=== PATIENT | female | born 1995 | race African-American/Black ===

== ENCOUNTER 2019-10-23 18:58 | Observation (INO) | payer MEDICAID ==
[~2019-10-23] VITALS: Ht 152.4 cm; Wt 118.8 kg
[~2019-10-23 18:58] MED LIST: PREN1TAB49 PO
== END 2019-10-24 00:40 | disposition home or self-care (01) ==
LOC: SPU 18:58
PROVIDERS: ADMIT Specialist; ATTEND Specialist
DX: O62.9 Abnormality of forces of labor, unspecified (principal); Z3A.37 37 weeks gestation of pregnancy
CPT/HCPCS: 59025; 81002; G0378 ×2

== ENCOUNTER 2019-10-26 06:25 | Observation (INO) | payer MEDICAID ==
[~2019-10-26] VITALS: Ht 152.4 cm; Wt 118.8 kg
== END 2019-10-26 09:00 | disposition home or self-care (01) ==
LOC: SPU 06:25
PROVIDERS: ADMIT Specialist; ATTEND Specialist
DX: O62.9 Abnormality of forces of labor, unspecified (principal); O42.92 Full-term premature rupture of membranes, unspecified as to length of time between rupture and onset of labor; Z3A.38 38 weeks gestation of pregnancy
CPT/HCPCS: G0378

== ENCOUNTER 2019-11-01 05:26 | Observation (INO) | payer MEDICAID | END 2019-11-01 11:34 | disposition home or self-care (01) | LOC: SPU 05:26 | PROVIDERS: ADMIT Obstetrics & Gynecology; ATTEND Obstetrics & Gynecology | DX: O36.8130 Decreased fetal movements, third trimester, not applicable or unspecified (principal); Z3A.38 38 weeks gestation of pregnancy | CPT/HCPCS: G0378 ==

== ENCOUNTER 2019-11-07 07:05 | Inpatient (IN) | payer MEDICAID ==
[~2019-11-07] VITALS: Ht 152.4 cm; Wt 118.8 kg
[2019-11-07] MEDS ORDERED: NALBUPHINE HCL 10 MG/ML AMP IVP PRN (07:15)
[2019-11-07] MEDS ORDERED: LR 1,000 ML IV SCH (07:15)
[2019-11-07] MEDS ORDERED: LR 1,000 ML IV ONE (07:15)
[2019-11-07] MEDS ORDERED: OXYTOCIN/0.9 % SODIUM CHLORIDE 1,000 ML IV SCH (07:15)
[2019-11-07] MEDS ORDERED: AMPICILLIN SODIUM 2 GM in NS 100 ML IV ONE (08:00)
[2019-11-07 08:08] LABS: BASOPHILS % (AUTO) 0.3 % (0.0-2.0); EOSINOPHILS % (AUTO) 0.4 % (0.0-4.0); HEMATOCRIT 37.5 % (36-48); HEMOGLOBIN 12.3 g/dL (12.0-16.0); LYMPHOCYTES # (AUTO) 1.8 K/uL (1.0-5.5); MEAN CORPUSCULAR HEMOGLOBIN 27 pg (27-31); MEAN CORPUSCULAR HGB CONC 33 % (32-36); MEAN CORPUSCULAR VOLUME 83 fL (79.0-98.0); MONOCYTES # (AUTO) 0.6 K/uL (0.0-1.0); MONOCYTES % (AUTO) 8.9 % (1.7-9.3); NEUTROPHILS # (AUTO) 4.3 K/uL (1.8-7.7); NEUTROPHILS % (AUTO) 64.4 % (40.0-70.0); PLATELET COUNT (AUTO) 284 K/uL (130-430); RED BLOOD CELL COUNT(AUTO) 4.52 MIL/uL (4.2-6.2); RED CELL DISTRIBUTION WIDTH 16.1 % (9.0-15.0); WHITE BLOOD COUNT (AUTO) 6.8 K/uL (4.8-10.8)
[2019-11-07] MEDS ORDERED: AMPICILLIN SODIUM 2 GM VIAL ONE (08:25)
[2019-11-07 09:25] VITALS: BP_SYST 117
[2019-11-07] MEDS: AMPICILLIN SODIUM 1 GM in NS 50 ML IV SCH ×2 (12:30→17:00)
[2019-11-07] MEDS ORDERED: OXYTOCIN 10 UNIT/ML VIAL ONE (21:56)
[2019-11-07] MEDS ORDERED: METHYLERGONOVINE MALEATE 0.2 MG/ML AMP ONE (22:01)
[2019-11-07] MEDS ORDERED: OXYCODONE/ACETAMINOPHEN 5-325 TABLET ONE (22:14)
[2019-11-08] MEDS ORDERED: LANOLIN 7 GM OINT. TP PRN (01:15)
[2019-11-08] MEDS ORDERED: WITCH HAZEL LEAF 1 MED.PAD MED.PAD TP PRN (01:15)
[2019-11-08] MEDS ORDERED: SENNOSIDES/DOCUSATE SODIUM 1 TAB TABLET(SENOKOT-S) PO PRN (01:15)
[2019-11-08] MEDS ORDERED: OXYCODONE/ACETAMINOPHEN 5-325 TABLET PO PRN ×2 (01:15)
[2019-11-08] MEDS ORDERED: METHYLERGONOVINE MALEATE 0.2 MG TABLET PO PRN (01:15)
[2019-11-08] MEDS ORDERED: DERMOPLAST SPRAY TP PRN (01:15)
[2019-11-08] MEDS ORDERED: ANUSOL 1 EA SUPP.RECT (PREPARATION H) RC PRN (01:15)
[2019-11-08] MEDS ORDERED: DOCUSATE SODIUM 100 MG CAPSULE PO PRN (01:15)
[2019-11-08] MEDS: IBUPROFEN 600 MG TABLET PO SCH ×3 (08:22→20:02)
--- NOTE | 2019-11-08 16:22 | NUR ---
Dietitian Recommendations * Recommend continuing regular diet LP, RD Please refer to Nutrition Assessment for details. Addendum: 11/08/19 at [address] Amended: Links added.
[2019-11-09] MEDS: IBUPROFEN 600 MG TABLET PO SCH ×2 (01:03→06:00)
[2019-11-09 06:33] LABS: BASOPHILS % (AUTO) 0.6 % (0.0-2.0); EOSINOPHILS # (AUTO) 0.1 K/uL (0.0-0.4); EOSINOPHILS % (AUTO) 1.2 % (0.0-4.0); HEMATOCRIT 31.6 % (36-48); HEMOGLOBIN 10.5 g/dL (12.0-16.0); LYMPHOCYTES # (AUTO) 3.2 K/uL (1.0-5.5); LYMPHOCYTES % (AUTO) 40.8 % (20.5-51.5); MEAN CORPUSCULAR HEMOGLOBIN 28 pg (27-31); MEAN CORPUSCULAR HGB CONC 33 % (32-36); MEAN CORPUSCULAR VOLUME 83 fL (79.0-98.0); MONOCYTES # (AUTO) 0.7 K/uL (0.0-1.0); NEUTROPHILS # (AUTO) 3.8 K/uL (1.8-7.7); NEUTROPHILS % (AUTO) 48.4 % (40.0-70.0); PLATELET COUNT (AUTO) 274 K/uL (130-430); RED BLOOD CELL COUNT(AUTO) 3.79 MIL/uL (4.2-6.2); RED CELL DISTRIBUTION WIDTH 15.5 % (9.0-15.0); WHITE BLOOD COUNT (AUTO) 7.9 K/uL (4.8-10.8)
== END 2019-11-09 12:12 | disposition home or self-care (01) | DRG 560 ==
LOC: SPU 07:05
PROVIDERS: ADMIT Obstetrics & Gynecology; ATTEND Obstetrics & Gynecology
PROC: 10E0XZZ Delivery of Products of Conception, External Approach (ICD-10-PCS; principal; 2019-11-07)
DX: O80 Encounter for full-term uncomplicated delivery (principal); R71.0 Precipitous drop in hematocrit; Z37.0 Single live birth; Z3A.40 40 weeks gestation of pregnancy
CPT/HCPCS: 36415; 81002-TC; 85025; 86592; 86886; 86900; 86901; J0290; J2210; J2590

== ENCOUNTER 2020-11-28 14:01 | Emergency (ER) | payer MEDICAID ==
[~2020-11-28] VITALS: Ht 152.4 cm; Wt 104.3 kg
[2020-11-28 14:08] VITALS: BP_SYST 109
--- NOTE | 2020-11-28 14:08 | NUR ---
Patient to ER bed Tent2 to gown for evaluation. Side rails up.
--- NOTE | 2020-11-28 14:09 | NUR ---
Pt brought by self, A&Ox4, pt presents to ER with L jaw pain / swelling starting one hour ago, pt afebrile, states recent toothache, skin pink and warm, cap refill <3.
--- NOTE | 2020-11-28 14:10 | NUR ---
Dr Dos Santos evaluating patient in the tent
[2020-11-28 14:12] VITALS: BP_SYST 109
--- NOTE | 2020-11-28 15:05 | NUR ---
Patient given written and verbal discharge instructions and verbalizes understanding. ER MD discussed with patient the results and treatment provided. Patient in stable condition. ID arm band removed. Rx of Keflex and Naproxen given. Patient educated on pain management and to follow up with PMD. Pain Scale 2/10 . Opportunity for questions provided and answered. Medication side effect fact sheet provided.
== END 2020-11-28 15:05 | disposition home or self-care (01) ==
LOC: SED 14:01
DX: K11.20 Sialoadenitis, unspecified (principal)
CPT/HCPCS: 99283

== ENCOUNTER 2020-12-24 12:28 | Emergency (ER) | payer MEDICAID, SELFPAY ==
[~2020-12-24] VITALS: Ht 152.4 cm; Wt 104.3 kg
[2020-12-24 12:40] VITALS: BP_SYST 105
[2020-12-24 13:06] LABS: BILIRUBIN,URINE NEGATIVE (NEGATIVE); BLOOD, URINE 2+ (NEGATIVE); COLOR,URINE YELLOW (YELLOW); GLUCOSE,URINE NEGATIVE (NEGATIVE); KETONES,URINE NEGATIVE (NEGATIVE); LEUKOCYTE ESTERASE ,URINE NEGATIVE (NEGATIVE); NITRITE, URINE NEGATIVE (NEGATIVE); PROTEIN URINE NEGATIVE (NEGATIVE); UROBILINOGEN,URINE 0.2 (0.2-1.0)
[2020-12-24 13:08] LABS: CLARITY/URINE SLIGHTLY HAZY (CLEAR)
[2020-12-24 13:10] LABS: HCG,QUAL RESULT NEGATIVE (NEGATIVE)
[2020-12-24 13:26] LABS: BACTERIA,URINE FEW /HPF (None Seen); MUCUS,URINE 1+ /LPF (None Seen); WBC,URINE 0-3 /HPF (0-3)
[2020-12-24 13:36] LABS: BASOPHILS % (AUTO) 0.4 % (0.0-2.0); EOSINOPHILS # (AUTO) 0.2 K/uL (0.0-0.4); EOSINOPHILS % (AUTO) 3.3 % (0.0-4.0); HEMATOCRIT 39.4 % (36-48); HEMOGLOBIN 13.1 g/dL (12.0-16.0); LYMPHOCYTES % (AUTO) 41.3 % (20.5-51.5); MEAN CORPUSCULAR HEMOGLOBIN 27 pg (27-31); MEAN CORPUSCULAR HGB CONC 33 % (32-36); MEAN CORPUSCULAR VOLUME 83 fL (79.0-98.0); MONOCYTES # (AUTO) 0.8 K/uL (0.0-1.0); MONOCYTES % (AUTO) 10.5 % (1.7-9.3); NEUTROPHILS # (AUTO) 3.2 K/uL (1.8-7.7); NEUTROPHILS % (AUTO) 44.5 % (40.0-70.0); PLATELET COUNT (AUTO) 306 K/uL (130-430); RED BLOOD CELL COUNT(AUTO) 4.76 MIL/uL (4.2-6.2); RED CELL DISTRIBUTION WIDTH 14.5 % (9.0-15.0); WHITE BLOOD COUNT (AUTO) 7.2 K/uL (4.8-10.8)
[2020-12-24 14:53] VITALS: BP_SYST 114
== END 2020-12-24 14:53 | disposition home or self-care (01) ==
LOC: SED 12:28
DX: B34.9 Viral infection, unspecified (principal); Z20.822 Contact with and (suspected) exposure to COVID-19
CPT/HCPCS: 36415; 81000-TC; 81025; 84703; 85025; 99283

== ENCOUNTER 2021-05-12 13:48 | Emergency (ER) | payer MEDICAID, SELFPAY ==
[~2021-05-12] VITALS: Ht 152.4 cm; Wt 110.2 kg
[2021-05-12 14:02] VITALS: BP_SYST 128
--- NOTE | 2021-05-12 14:05 | NUR ---
Patient to ER bed 4 to gown for evaluation. Side rails up.
--- NOTE | 2021-05-12 14:15 | NUR ---
ER at bedside examining patient.
[2021-05-12] MEDS ORDERED: MECLIZINE HCL 25 MG TABLET (ANITVERT) PO ONE (14:30)
[2021-05-12] MEDS ORDERED: METOCLOPRAMIDE HCL 10 MG/2 ML VIAL IVP ONE (14:30)
--- NOTE | 2021-05-12 14:50 | NUR ---
# 20 gauge angiocath placed to left AC. Use of asceptic technique. Opsite placed over site. Blood return noted. Blood for lab drawn from site. Flushed with 10 cc of normal saline. No evidence of infiltration noted. Patient tolerated well.
--- NOTE | 2021-05-12 15:01 | NUR ---
Patient transported to radiology via wheelchair, accompanied by staff.
[2021-05-12 15:07] LABS: BASOPHILS % (AUTO) 0.2 % (0.0-2.0); EOSINOPHILS % (AUTO) 0.2 % (0.0-4.0); HEMOGLOBIN 12.8 g/dL (12.0-16.0); LYMPHOCYTES # (AUTO) 1.5 K/uL (1.0-5.5); LYMPHOCYTES % (AUTO) 12.4 % (20.5-51.5); MEAN CORPUSCULAR HEMOGLOBIN 27 pg (27-31); MEAN CORPUSCULAR HGB CONC 33 % (32-36); MEAN CORPUSCULAR VOLUME 83 fL (79.0-98.0); MONOCYTES # (AUTO) 0.6 K/uL (0.0-1.0); MONOCYTES % (AUTO) 5.4 % (1.7-9.3); NEUTROPHILS # (AUTO) 9.6 K/uL (1.8-7.7); NEUTROPHILS % (AUTO) 81.8 % (40.0-70.0); PLATELET COUNT (AUTO) 348 K/uL (130-430); RED BLOOD CELL COUNT(AUTO) 4.72 MIL/uL (4.2-6.2); RED CELL DISTRIBUTION WIDTH 14.9 % (9.0-15.0); WHITE BLOOD COUNT (AUTO) 11.8 K/uL (4.8-10.8)
[2021-05-12 15:32] LABS: CALCIUM 9.3 mg/dL (8.4-11.0); CREATININE 0.76 mg/dL (0.55-1.30); POTASSIUM 3.8 mmol/L (3.5-5.1)
[2021-05-12 15:36] LABS: PROTHROMBIN TIME 10.4 SECS (9.5-12.5)
[2021-05-12 15:37] LABS: ALBUMIN 3.6 g/dL (3.4-4.8); TOTAL BILIRUBIN 0.1 mg/dL (0.0-1.0)
[2021-05-12] MEDS ORDERED: MECL-108 PO (16:20)
--- NOTE | 2021-05-12 16:30 | NUR ---
Patient given written and verbal discharge instructions and verbalizes understanding. Dr. Rust discussed with patient the results and treatment provided. Patient in stable condition. ID arm band removed. IV catheter removed intact and dressing applied, no active bleeding. Rx of Meclizine given. Patient educated on pain management and to follow up with PMD. Pain Scale 0. Opportunity for questions provided and answered. Medication side effect fact sheet provided.
[2021-05-12 16:43] VITALS: BP_SYST 101
== END 2021-05-12 16:30 | disposition home or self-care (01) ==
LOC: SED 13:48
DX: R42 Dizziness and giddiness (principal); Z79.899 Other long term (current) drug therapy
CPT/HCPCS: 36415; 70450; 71045; 76376; 80053; 81025; 84484; 85025; 85610; 85730; 93005; 96374; 99285; J2765; J8597

== ENCOUNTER 2021-10-09 21:26 | Emergency (ER) | payer MEDICAID ==
[~2021-10-09] VITALS: Ht 152.4 cm; Wt 113.4 kg
[~2021-10-09 21:26] MED LIST changes: +MECL-108 PO
[2021-10-09 21:34] VITALS: BP_SYST 131
--- NOTE | 2021-10-09 21:46 | NUR ---
Patient triaged and placed in waiting room. VSS and patient appears in no acute distress at this time.awaiting available bed, and MD notified of need for MSE.
--- NOTE | 2021-10-09 21:47 | NUR ---
COVID SWAB COLLECTED AND SENT TO LAB.
--- NOTE | 2021-10-09 22:20 | NUR ---
Patient to ER bed 6 to gown for evaluation. Side rails up. Report given to SARMAD BUNCH.
--- NOTE | 2021-10-09 22:30 | NUR ---
Pt report received. Pt states that her right ear became muffled this am around 1100, then she felt dizzy throught the day. 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 NAD noted at this time.
--- NOTE | 2021-10-09 22:30 | NUR ---
ER at bedside examining patient.
[2021-10-09] MEDS ORDERED: LORATADINE 10 MG TABLET PO ONE (23:30)
[2021-10-10 00:07] LABS: BASOPHILS % (AUTO) 0.3 % (0.0-2.0); EOSINOPHILS # (AUTO) 0.1 K/uL (0.0-0.4); EOSINOPHILS % (AUTO) 1.1 % (0.0-4.0); HEMATOCRIT 35.5 % (36-48); HEMOGLOBIN 11.9 g/dL (12.0-16.0); LYMPHOCYTES # (AUTO) 2.8 K/uL (1.0-5.5); LYMPHOCYTES % (AUTO) 28.1 % (20.5-51.5); MEAN CORPUSCULAR HEMOGLOBIN 27 pg (27-31); MEAN CORPUSCULAR HGB CONC 33 % (32-36); MEAN CORPUSCULAR VOLUME 80 fL (79.0-98.0); MONOCYTES # (AUTO) 0.8 K/uL (0.0-1.0); MONOCYTES % (AUTO) 7.8 % (1.7-9.3); NEUTROPHILS # (AUTO) 6.3 K/uL (1.8-7.7); NEUTROPHILS % (AUTO) 62.7 % (40.0-70.0); PLATELET COUNT (AUTO) 344 K/uL (130-430); RED BLOOD CELL COUNT(AUTO) 4.42 MIL/uL (4.2-6.2); RED CELL DISTRIBUTION WIDTH 14.8 % (9.0-15.0)
[2021-10-10 00:20] LABS: CALCIUM 8.9 mg/dL (8.4-11.0); CREATININE 0.67 mg/dL (0.55-1.30); POTASSIUM 3.9 mmol/L (3.5-5.1)
[2021-10-10 00:22] LABS: ERYTHROCYTE SEDIMENTATION RATE 15 MM/HR (0-20)
[2021-10-10 00:26] LABS: ALBUMIN 3.3 g/dL (3.4-4.8); TOTAL BILIRUBIN 0.2 mg/dL (0.0-1.0)
--- NOTE | 2021-10-10 00:27 | NUR ---
Dr. Mcgrath at bedside discussing POC with pt.
[2021-10-10] MEDS ORDERED: LORA10TA7 PO (00:35)
[2021-10-10] MEDS ORDERED: OXYM15MI9 NS (00:35)
[2021-10-10 00:40] VITALS: BP_SYST 134
--- NOTE | 2021-10-10 00:40 | NUR ---
Patient given written and verbal discharge instructions and verbalizes understanding. ER MD discussed with patient the results and treatment provided. Patient in stable condition. ID arm band removed. Rx of Claritin and Afrin sent electronically to pt's preferred pharmacy. Patient educated on pain management and to follow up with PMD. Pain Scale 0/10. Opportunity for questions provided and answered. Medication side effect fact sheet provided.
== END 2021-10-10 00:40 | disposition home or self-care (01) ==
LOC: SED 21:26
DX: H81.02 Meniere's disease, left ear (principal); Z79.899 Other long term (current) drug therapy; Z20.822 Contact with and (suspected) exposure to COVID-19
CPT/HCPCS: 36415; 80053; 85025; 85651-TC; 99283

== ENCOUNTER 2021-12-24 21:52 | Emergency (ER) | payer MEDICAID ==
[~2021-12-24] VITALS: Ht 152.4 cm; Wt 117.9 kg
[~2021-12-24 21:52] MED LIST changes: +LORA10TA7 PO; +OXYM15MI9 NS
[2021-12-24 22:08] VITALS: BP_SYST 118
[2021-12-24] MEDS ORDERED: ONDANSETRON HCL 4 MG/2 ML VIAL IVP ONE (23:15)
[2021-12-24] MEDS ORDERED: ACETAMINOPHEN 500 MG TABLET PO ONE (23:15)
[2021-12-24] MEDS ORDERED: NACL 0.9% 1,000 ML IV ONE (23:15)
[2021-12-24 23:28] LABS: BASOPHILS # (AUTO) 0.1 K/uL (0.0-0.2); BASOPHILS % (AUTO) 0.6 % (0.0-2.0); EOSINOPHILS # (AUTO) 0.1 K/uL (0.0-0.4); EOSINOPHILS % (AUTO) 1.1 % (0.0-4.0); HEMATOCRIT 37.6 % (36-48); HEMOGLOBIN 12.4 g/dL (12.0-16.0); LYMPHOCYTES # (AUTO) 2.6 K/uL (1.0-5.5); LYMPHOCYTES % (AUTO) 29.6 % (20.5-51.5); MEAN CORPUSCULAR HEMOGLOBIN 27 pg (27-31); MEAN CORPUSCULAR HGB CONC 33 % (32-36); MEAN CORPUSCULAR VOLUME 82 fL (79.0-98.0); MONOCYTES # (AUTO) 0.6 K/uL (0.0-1.0); MONOCYTES % (AUTO) 6.4 % (1.7-9.3); NEUTROPHILS # (AUTO) 5.4 K/uL (1.8-7.7); NEUTROPHILS % (AUTO) 62.3 % (40.0-70.0); PLATELET COUNT (AUTO) 352 K/uL (130-430); RED BLOOD CELL COUNT(AUTO) 4.59 MIL/uL (4.2-6.2); RED CELL DISTRIBUTION WIDTH 15.9 % (9.0-15.0); WHITE BLOOD COUNT (AUTO) 8.7 K/uL (4.8-10.8)
[2021-12-24 23:54] LABS: CALCIUM 8.9 mg/dL (8.4-11.0); CREATININE 0.54 mg/dL (0.55-1.30); POTASSIUM 3.8 mmol/L (3.5-5.1)
[2021-12-25 00:21] LABS: ALBUMIN 2.7 g/dL (3.4-4.8)
[2021-12-25 00:51] LABS: TOTAL BILIRUBIN 0.3 mg/dL (0.0-1.0)
[2021-12-25 01:17] LABS: BILIRUBIN,URINE NEGATIVE (NEGATIVE); BLOOD, URINE NEGATIVE (NEGATIVE); CLARITY/URINE CLEAR (CLEAR); COLOR,URINE YELLOW (YELLOW); GLUCOSE,URINE NEGATIVE (NEGATIVE); KETONES,URINE NEGATIVE (NEGATIVE); LEUKOCYTE ESTERASE ,URINE NEGATIVE (NEGATIVE); NITRITE, URINE NEGATIVE (NEGATIVE); PROTEIN URINE NEGATIVE (NEGATIVE); UROBILINOGEN,URINE 0.2 (0.2-1.0)
[2021-12-25 01:58] VITALS: BP_SYST 118
== END 2021-12-25 01:56 | disposition home or self-care (01) ==
LOC: SED 21:52
DX: O26.891 Other specified pregnancy related conditions, first trimester (principal); R10.9 Unspecified abdominal pain; Z3A.13 13 weeks gestation of pregnancy; Z79.899 Other long term (current) drug therapy
CPT/HCPCS: 36415; 76805; 80053; 81003; 81025; 84702; 85025; 96361; 96374; 99284; J2405; J7030

== ENCOUNTER 2021-12-28 15:41 | Emergency (ER) | payer MEDICAID ==
[~2021-12-28] VITALS: Ht 152.4 cm; Wt 120.2 kg
[2021-12-28 16:12] VITALS: BP_SYST 126
--- NOTE | 2021-12-28 16:30 | NUR ---
Patient to ER bed T1 to gown for evaluation. Side rails up.
[2021-12-28] MEDS ORDERED: ONDA-8 TL (16:35)
--- NOTE | 2021-12-28 16:35 | NUR ---
ER at bedside examining patient.
--- NOTE | 2021-12-28 16:40 | NUR ---
PT PRSENTS TO ED C/I COVID SYMPTOMS RECENT DX: COVID IN OCTOBER.
[2021-12-28 17:00] VITALS: BP_SYST 126
--- NOTE | 2021-12-28 17:00 | NUR ---
Patient given written and verbal discharge instructions and verbalizes understanding. ER MD discussed with patient the results and treatment provided. Patient in stable condition. ID arm band removed. Rx of ZOFRAN given. Patient educated on pain management and to follow up with PMD. Pain Scale 0. Opportunity for questions provided and answered. Medication side effect fact sheet provided.
== END 2021-12-28 17:00 | disposition home or self-care (01) ==
LOC: SED 15:41
DX: B34.9 Viral infection, unspecified (principal); R11.0 Nausea; Z79.899 Other long term (current) drug therapy
CPT/HCPCS: 99283

== ENCOUNTER 2022-01-31 18:46 | Emergency (ER) | payer MEDICAID ==
[~2022-01-31] VITALS: Ht 152.4 cm; Wt 120.2 kg
[~2022-01-31 18:46] MED LIST changes: +ONDA-8 TL
[2022-01-31 19:05] VITALS: BP_SYST 140
--- NOTE | 2022-01-31 19:30 | NUR ---
Patient to ER bed 6 to gown for evaluation. Side rails up. Report given to ANGELIQUE BAÑUELOS.
--- NOTE | 2022-01-31 20:13 | NUR ---
Patient stated that she "has had abdominal cramping since today." Patient is A/Ox4, lying in bed resting comfortably, no s/s of distress. Patient stated pain is 4/10. Patient chest rise and fall symmetrical. Bed in low and locked position, bed rails up. Addendum: 01/31/22 at 2039 by [email or web address] Patient is 19 weeks , . stated that she "has had abdominal cramping since yesterday." Patient denies trauma. Patient stated that she "did not take any medications for pain." Patient is A/Ox4, lying in bed resting comfortably, no s/s of distress. Patient stated pain is 4/10. Patient chest rise and fall symmetrical. Bed in low and locked position, bed rails up.
--- NOTE | 2022-01-31 20:16 | NUR ---
ER Dr. Guerrero at bedside examining patient.
--- NOTE | 2022-01-31 20:39 | NUR ---
urine dipstick read completed, confirmed by director of cardiac cath lab.
--- NOTE | 2022-01-31 20:42 | NUR ---
surgical instrument technician notified of ultrasound order for patient. Ultrasouns tech verbalized understanding, no further questions.
[2022-01-31 21:13] LABS: BILIRUBIN,URINE NEGATIVE (NEGATIVE); BLOOD, URINE NEGATIVE (NEGATIVE); COLOR,URINE YELLOW (YELLOW); GLUCOSE,URINE NEGATIVE (NEGATIVE); KETONES,URINE NEGATIVE (NEGATIVE); LEUKOCYTE ESTERASE ,URINE NEGATIVE (NEGATIVE); NITRITE, URINE NEGATIVE (NEGATIVE); PROTEIN URINE TRACE (NEGATIVE); UROBILINOGEN,URINE 0.2 (0.2-1.0)
[2022-01-31 21:33] LABS: BACTERIA,URINE FEW /HPF (None Seen); CLARITY/URINE SLIGHTLY CLOUDY (CLEAR); MUCUS,URINE None Seen /LPF (None Seen); RBC,URINE NONE SEEN /HPF (0-3); URINE AMORPHOUS URATE 3+ /HPF (None Seen); WBC,URINE 0-3 /HPF (0-3)
--- NOTE | 2022-01-31 21:58 | NUR ---
Dr Guerrero informed of HCG results. Dr Guerrero verbalized understanding, no new orders.
--- NOTE | 2022-01-31 22:00 | NUR ---
Dr Guerrero asked for redraw of HCG lab. Lab called and stated they "will redraw."
[2022-01-31 22:08] LABS: BASOPHILS % (AUTO) 0.2 % (0.0-2.0); EOSINOPHILS % (AUTO) 0.4 % (0.0-4.0); HEMATOCRIT 35.2 % (36-48); HEMOGLOBIN 11.6 g/dL (12.0-16.0); LYMPHOCYTES % (AUTO) 19.5 % (20.5-51.5); MEAN CORPUSCULAR HEMOGLOBIN 27 pg (27-31); MEAN CORPUSCULAR HGB CONC 33 % (32-36); MEAN CORPUSCULAR VOLUME 82 fL (79.0-98.0); MONOCYTES # (AUTO) 0.7 K/uL (0.0-1.0); MONOCYTES % (AUTO) 6.4 % (1.7-9.3); NEUTROPHILS # (AUTO) 7.6 K/uL (1.8-7.7); NEUTROPHILS % (AUTO) 73.5 % (40.0-70.0); PLATELET COUNT (AUTO) 309 K/uL (130-430); RED BLOOD CELL COUNT(AUTO) 4.32 MIL/uL (4.2-6.2); RED CELL DISTRIBUTION WIDTH 15.2 % (9.0-15.0); WHITE BLOOD COUNT (AUTO) 10.4 K/uL (4.8-10.8)
--- NOTE | 2022-01-31 22:10 | NUR ---
Patient is A/Ox4, lying in bed resting comfortably, no s/s of distress. Patient chest rise and fall symmetrical. Bed in low and locked position, bed rails up.
--- NOTE | 2022-01-31 23:45 | NUR ---
Dr. Díaz informed redraw completed but Dr. Díaz stated, "She doesn't hve to stay for results. She can be discharged."
[2022-01-31 23:48] VITALS: BP_SYST 109
--- NOTE | 2022-02-01 00:03 | NUR ---
Patient given written and verbal discharge instructions and verbalizes understanding. ER MD dr. Díaz discussed with patient the results and treatment provided. Patient in stable condition. Patient educated on pain management and to follow up with PMD. Pain Scale 1/10. Opportunity for questions provided and answered. Medication side effect fact sheet provided.
== END 2022-02-01 00:03 | disposition home or self-care (01) ==
LOC: SED 18:46
DX: O20.0 Threatened abortion (principal); Z3A.19 19 weeks gestation of pregnancy; Z79.899 Other long term (current) drug therapy
CPT/HCPCS: 36415; 76805-TC; 81000; 84702; 85025; 86900; 86901; 99284

== ENCOUNTER 2022-02-28 07:47 | Emergency (ER) | payer MEDICAID ==
--- NOTE | 2022-02-28 07:50 | NUR ---
Pt left ED after signing in.
== END 2022-02-28 08:26 | disposition left against medical advice (07) ==
LOC: SED 07:47
DX: J02.9 Acute pharyngitis, unspecified (principal); Z53.21 Procedure and treatment not carried out due to patient leaving prior to being seen by health care provider

== ENCOUNTER 2022-06-13 03:32 | Observation (INO) | payer MEDICAID | END 2022-06-13 06:40 | disposition left against medical advice (07) | LOC: SPU 03:32 | PROVIDERS: ADMIT Obstetrics & Gynecology; ATTEND Obstetrics & Gynecology | DX: O21.2 Late vomiting of pregnancy (principal); O26.893 Other specified pregnancy related conditions, third trimester; R10.9 Unspecified abdominal pain; Z3A.38 38 weeks gestation of pregnancy | CPT/HCPCS: G0379; G0378 ==

== ENCOUNTER 2023-10-15 22:39 | Emergency (ER) | payer MEDICAID ==
[~2023-10-15] VITALS: Ht 152.4 cm; Wt 136.1 kg
[2023-10-15 22:48] VITALS: BP_SYST 136; PULSE 104; RESP 20; TEMP 97.8; O2SAT 99
[2023-10-15 23:31] LABS: BASOPHILS % (AUTO) 0.2 % (0.0-2.0); EOSINOPHILS # (AUTO) 0.1 K/uL (0.0-0.4); EOSINOPHILS % (AUTO) 0.5 % (0.0-4.0); HEMATOCRIT 30.7 % (36-48); LYMPHOCYTES # (AUTO) 3.2 K/uL (1.0-5.5); LYMPHOCYTES % (AUTO) 29.2 % (20.5-51.5); MEAN CORPUSCULAR HEMOGLOBIN 27 pg (27-31); MEAN CORPUSCULAR HGB CONC 33 % (32-36); MEAN CORPUSCULAR VOLUME 81 fL (79.0-98.0); MONOCYTES # (AUTO) 0.8 K/uL (0.0-1.0); MONOCYTES % (AUTO) 7.3 % (1.7-9.3); NEUTROPHILS # (AUTO) 6.8 K/uL (1.8-7.7); NEUTROPHILS % (AUTO) 62.8 % (40.0-70.0); PLATELET COUNT (AUTO) 358 K/uL (130-430); RED BLOOD CELL COUNT(AUTO) 3.78 MIL/uL (4.2-6.2); RED CELL DISTRIBUTION WIDTH 15.1 % (9.0-15.0); WHITE BLOOD COUNT (AUTO) 10.8 K/uL (4.8-10.8)
[2023-10-15 23:56] LABS: ANION GAP 11 (5-15); CALCIUM 8.6 mg/dL (8.4-11.0); CARBON DIOXIDE 24 mmol/L (23-29); CHLORIDE 103 mmol/L (98-107); GFR AFRICAN AMERICAN 109 mL/min (>90); GLUCOSE 114 mg/dL (74-106); POTASSIUM 4.2 mmol/L (3.5-5.1); SODIUM SERUM 138 mmol/L (136-145); UREA NITROGEN, BLOOD 10 mg/dL (8-21)
[2023-10-15 23:59] LABS: PROTHROMBIN TIME 10.4 SECS (9.5-12.5)
[2023-10-16] LABS: ALANINE AMINOTRANSFERASE 23 U/L (12-78); ALBUMIN 2.5 g/dL (3.4-4.8); ASPARTATE AMINOTRANSFERASE 14 U/L (10-37); BILIRUBIN,DIRECT < 0.1 mg/dL (0.0-0.3); TOTAL BILIRUBIN 0.1 mg/dL (0.0-1.0); TOTAL PROTEIN, SERUM 6.1 g/dL (6.4-8.3)
[2023-10-16 00:06] LABS: GFR NON AFRICAN-AMERICAN 90 mL/min (>90)
[2023-10-16 01:04] LABS: BILIRUBIN,URINE NEGATIVE (NEGATIVE); BLOOD, URINE NEGATIVE (NEGATIVE); CLARITY/URINE CLEAR (CLEAR); COLOR,URINE YELLOW (YELLOW); GLUCOSE,URINE NEGATIVE (NEGATIVE); KETONES,URINE TRACE (NEGATIVE); LEUKOCYTE ESTERASE ,URINE NEGATIVE (NEGATIVE); NITRITE, URINE NEGATIVE (NEGATIVE); PROTEIN URINE 1+ (NEGATIVE); UROBILINOGEN,URINE 0.2 (0.2-1.0)
[2023-10-16] MEDS ORDERED: NACL 0.9% 1,000 ML IV ONE (01:15)
[2023-10-16 01:30] VITALS: BP_SYST 149; PULSE 89; RESP 18; TEMP 97.8; O2SAT 99
[2023-10-16] MEDS ORDERED: NAPR-1172 PO (01:31)
[2023-10-16 01:36] LABS: BACTERIA,URINE None Seen /HPF (None Seen)
== END 2023-10-16 01:30 | disposition home or self-care (01) ==
LOC: SED 22:39
DX: O20.9 Hemorrhage in early pregnancy, unspecified (principal); Z79.899 Other long term (current) drug therapy; Z3A.08 8 weeks gestation of pregnancy
CPT/HCPCS: 36415; 76856-TC; 80048; 80076; 81000; 81001; 81015; 82962; 85025; 85610-TC; 85730-TC; 86886; 86900; 86901; 99284